=== PATIENT | male | born 1950 | race Two or more races ===

== ENCOUNTER 2017-12-07 09:16 | Inpatient (IN) | payer BC, OTHER ==
[~2017-12-07] VITALS: Ht 172.7 cm; Wt 72.1 kg
[~2017-12-07 09:16] MED LIST: AMLO10TA2 PO; ATOR20TA50 PO; GLIP-116 PO; HYDR25TA4 PO; METF-371 PO
[2017-12-07] MEDS ORDERED: ceFOXitin 2GM/100ML 100 ML IV ONE (09:29)
[2017-12-07] MEDS: amLODIPine BESYLATE 5 MG TAB PO SCH (10:00)
[2017-12-07] MEDS ORDERED: BUPIVACAINE 0.25% INJ 50ML VIAL ONE (12:48)
[2017-12-07] MEDS ORDERED: LIDOCAINE W/ EPINEPHRINE 1 % INJ 30ML ONE (12:48)
[2017-12-07] MEDS ORDERED: fentaNYL CITRATE 5 ML ONE (12:52)
[2017-12-07] MEDS ORDERED: fentaNYL CITRATE 100 MCG/2 ML VL ONE ×3 (12:52→16:52)
[2017-12-07] MEDS ORDERED: MEPERIDINE HCL (50 MG/ML) 1 ML VIAL ONE (12:52)
[2017-12-07] MEDS ORDERED: PROPOFOL 10 MG/ML 20 ML IV ONE (12:52)
[2017-12-07] MEDS ORDERED: DEXAMETHASONE SOD PHOS 10MG/1ML VIAL INJ ONE (12:52)
[2017-12-07] MEDS ORDERED: MIDAZOLAM HCL 1MG/1ML-2 ML VIAL ONE (12:52)
[2017-12-07] MEDS ORDERED: SUCCINYLCHOLINE CHLORIDE 20 MG/ML 10ML VIAL IV ONE (13:08)
[2017-12-07] MEDS ORDERED: ROCURONIUM 10MG/ML 10ML VIAL IV ONE (13:26)
[2017-12-07] MEDS ORDERED: ePHEDrine SULFATE 50 MG/ML AMP IV PRN (14:00)
[2017-12-07] MEDS ORDERED: MORPHINE SULFATE 8mg/ml INJ SDV IV ONE (14:00)
[2017-12-07] MEDS ORDERED: LABETALOL HCL 5 MG/ML 4ML SYRINGE IV PRN (14:00)
[2017-12-07] MEDS ORDERED: HYDROmorphone HCL 2 MG/ML VL IV ONE (14:00)
[2017-12-07] MEDS ORDERED: ONDANSETRON HCL 4 MG/2 ML VIAL IV ONE (14:00)
[2017-12-07] MEDS ORDERED: MORPHINE SULFATE 8mg/ml INJ SDV IV PRN (14:00)
[2017-12-07] MEDS ORDERED: KETOROLAC TROMETH 30 MG/ML 1ML VIAL IV ONE (14:00)
[2017-12-07] MEDS ORDERED: ACCU-CHEK COMFORT CURVE STRIP VI ONE (14:00)
[2017-12-07] MEDS ORDERED: MIDAZOLAM HCL 1MG/1ML-2 ML VIAL IV PRN (14:00)
[2017-12-07] MEDS ORDERED: fentaNYL CITRATE 100 MCG/2 ML VL IV ONE (14:00)
[2017-12-07] MEDS ORDERED: NEOSTIGMINE 1 MG/ML INJ (10mg/10ML VIAL) ONE (14:00)
[2017-12-07] MEDS ORDERED: GLYCOPYRROLATE 0.2 MG/ML 1ML VIAL ONE (14:00)
[2017-12-07] MEDS ORDERED: HYDROmorphone HCL 2 MG/ML VL IV PRN ×2 (14:00→14:15)
[2017-12-07] MEDS ORDERED: diphenhdrAMINE HCL 50 MG/1 ML VL IV PRN (14:15)
[2017-12-07] MEDS ORDERED: ONDANSETRON HCL 4 MG/2 ML VIAL IV PRN (14:15)
[2017-12-07] MEDS ORDERED: DEXTROSE (50%) 50ML SYRG IV PRN (14:15)
[2017-12-07] MEDS ORDERED: InsuLIN REG 1unit/0.01ml Soln (100units/ml) SC SCH ×2 (17:00→22:00)
[2017-12-07] MEDS: fentaNYL CITRATE 100 MCG/2 ML VL IV PRN ×3 (17:44→18:23)
[2017-12-07 19:50] VITALS: BP 135/74
[2017-12-07] MEDS: ACCU-CHEK COMFORT CURVE STRIP VI SCH (21:43)
[2017-12-07] MEDS: metFORMIN HYDROCHLORIDE 850 MG TAB PO SCH (21:44)
[2017-12-07] MEDS: glipiZIDE 5 MG TAB PO SCH (21:44)
[2017-12-07] MEDS: CEFOXITIN SODIUM 1 GM in D5W 5% 50 ML IV SCH (21:45)
[2017-12-07] MEDS: SOD CHL 0.45% 1,000 ML IV SCH (21:45)
[2017-12-07] MEDS: ACETAMINOPHEN/CODEINE#3 (300/30mg) TAB PO PRN (21:54)
[2017-12-07 22:00] VITALS: BP 135/74
[2017-12-08] MEDS: ACETAMINOPHEN/CODEINE#3 (300/30mg) TAB PO PRN ×2 (02:21→07:03)
[2017-12-08] MEDS: SOD CHL 0.45% 1,000 ML IV SCH (03:00)
[2017-12-08 05:00] VITALS: BP 132/74
[2017-12-08 05:54] LABS: BUN/Creatinine Ratio 15.9; Calcium 7.9 mg/dL (8.5-10.1); Potassium 3.6 mmol/L (3.5-5.1)
[2017-12-08] MEDS: CEFOXITIN SODIUM 1 GM in D5W 5% 50 ML IV SCH (07:02)
[2017-12-08] MEDS: ACCU-CHEK COMFORT CURVE STRIP VI SCH (07:02)
[2017-12-08] MEDS: metFORMIN HYDROCHLORIDE 850 MG TAB PO SCH (07:03)
[2017-12-08] MEDS ORDERED: HCTZ 25 MG TAB PO SCH (10:00)
[2017-12-08] MEDS ORDERED: ATORVASTATIN 20 MG TAB PO SCH (10:00)
[2017-12-08] MEDS: amLODIPine BESYLATE 5 MG TAB PO SCH (10:23)
[2017-12-08] MEDS: glipiZIDE 5 MG TAB PO SCH (10:23)
[2017-12-08 10:34] VITALS: BP 122/69
== END 2017-12-08 12:10 | disposition home or self-care (01) | DRG 708 ==
LOC: SUR 09:16 → WEST WING 09:17
PROVIDERS: ADMIT Urology; ATTEND Family Medicine
PROC: 0VT04ZZ Resection of Prostate, Percutaneous Endoscopic Approach (ICD-10-PCS; principal; 2017-12-08)
PROC: 07TC4ZZ Resection of Pelvis Lymphatic, Percutaneous Endoscopic Approach (ICD-10-PCS; 2017-12-08)
PROC: 8E0W4CZ Robotic Assisted Procedure of Trunk Region, Percutaneous Endoscopic Approach (ICD-10-PCS; 2017-12-08)
DX: C61 Malignant neoplasm of prostate (principal); I10 Essential (primary) hypertension; E78.5 Hyperlipidemia, unspecified; E11.9 Type 2 diabetes mellitus without complications
CPT/HCPCS: 36415; 80048; 82962; 86850; 86900; 86901; J0330; J0694; J1100; J1815; J1885; J2250; J2704; J3490; J7060

== ENCOUNTER 2020-03-28 14:22 | Inpatient (IN) | payer OTHER ==
[~2020-03-28] VITALS: Ht 172.7 cm; Wt 68.9 kg
[~2020-03-28 14:22] MED LIST changes: +AMLO10TA13 PO; -AMLO10TA2 PO; -GLIP-116 PO; +GLIP10TA9 PO
[2020-03-28] MEDS ORDERED: SODIUM CHLORIDE 0.9% 500 ML IV ONE (15:30)
[2020-03-28] MEDS ORDERED: SODIUM CHLORIDE 0.9% 1,000 ML IV ONE (15:30)
[2020-03-28 15:56] LABS: Hematocrit 37.6 % (41.0-53.0); Hemoglobin 12.3 g/dL (13.5-17.5); Mean Corpuscular Hemoglobin 28.7 pg (28.0-32.0); Mean Corpuscular Hgb Conc. 32.7 g/dL (32.0-36.0); Mean Corpuscular Volume 87.9 fL (80.0-100.0); Platelet Count (auto) 232 10^3/uL (140-450); Red Blood Cells 4.28 10^6/uL (4.5-5.90); Red Cell Distribution Width 13.5 % (11.8-14.3); White Blood Cell 24.5 10^3/uL (4.4-10.8)
[2020-03-28 16:01] LABS: Basophils % (manual) 0 (0.0-2.0); Blast Cells 0; Eosinophils % (manual) 0 (0-7); Monocytes % (manual) 0 (0-12); Myelocytes % 0; Promyelocytes % 0; Reactive Lymphocytes 0
[2020-03-28 16:17] LABS: Anion Gap 13 (5-15); Blood Urea Nitrogen 27 mg/dL (7-18); Calcium 9.1 mg/dL (8.5-10.1); Carbon Dioxide 21 mmol/L (21-32); Chloride 104 mmol/L (98-107); Glucose 263 mg/dL (74-106); Magnesium 1.7 mg/dL (1.6-2.6); Potassium 3.2 mmol/L (3.5-5.1); Sodium 138 mmol/L (136-145)
[2020-03-28 16:24] LABS: Alanine Aminotransferase 28 U/L (16-61); Alkaline Phosphatase 100 U/L (45-117); Aspartate Aminotransferase 45 U/L (15-37); BUN/Creatinine Ratio 12.4; GFR African American 39 mL/min; GFR Non-African American 32 mL/min; Total Protein 7.8 g/dL (6.4-8.2)
[2020-03-28 17:44] LABS: Band Neutrophils % (manual) 10; Lymphocytes % (manual) 2 (10.0-50.0); Metamyelocytes % 3
[2020-03-28] MEDS ORDERED: cefTRIAXone 1GM/50ML D5W 50 ML IV ONE (18:30)
[2020-03-28 20:45] LABS: Urine Bacteria FEW /hpf (None Seen); Urine Blood 1+ /uL (Negative); Urine Hyaline Cast MANY /lpf (0 - 2); Urine Mucus FEW (None Seen); Urine Specific Gravity 1.017 (1.001-1.035); Urine WBC 4 /hpf (0 - 3)
[2020-03-29] VITALS (7 sets, daily range): BP systolic 103–129; BP diastolic 59–69
[2020-03-29] MEDS ORDERED: DOCUSATE SOD 100 MG CAP PO PRN (01:45)
[2020-03-29] MEDS ORDERED: SODIUM CHLORIDE 0.9% 1,000 ML IV SCH (01:45)
[2020-03-29] MEDS ORDERED: HYDROcodone-ACET 5/325MG TAB PO PRN (01:45)
[2020-03-29] MEDS ORDERED: ONDANSETRON HCL 4 MG/2 ML VIAL IV PRN (01:45)
[2020-03-29] MEDS ORDERED: MORPHINE SULF INJ 2 MG/ML SYRINGE 1ML IV PRN (01:45)
[2020-03-29] MEDS ORDERED: DEXTROSE (50%) 50ML SYRG IV PRN (01:45)
[2020-03-29] MEDS ORDERED: ACETAMINOPHEN 325 MG TAB PO PRN (01:45)
[2020-03-29] MEDS: InsuLIN REG 1unit/0.01ml Soln (100units/ml) SC SCH ×6 (03:56→23:40)
[2020-03-29] MEDS: ACCU-CHEK COMFORT CURVE STRIP VI SCH ×6 (03:57→23:39)
[2020-03-29 06:41] LABS: Basophils # (auto) 0 10 ^3/uL (0-0.2); Basophils % (auto) 0.2 % (0.0-2.0); Eosinophils # (auto) 0 10 ^3/uL (0-0.8); Eosinophils % (auto) 0.2 % (0.0-7.0); Hematocrit 31.5 % (41.0-53.0); Hemoglobin 11.1 g/dL (13.5-17.5); Lymphocytes # (auto) 1.1 10 ^3/uL (0.4-5.4); Lymphocytes % (auto) 4.6 % (10.0-50.0); Mean Corpuscular Hemoglobin 30.6 pg (28.0-32.0); Mean Corpuscular Hgb Conc. 35.3 g/dL (32.0-36.0); Mean Corpuscular Volume 86.5 fL (80.0-100.0); Monocytes # (auto) 0.8 10 ^3/uL (0-1.3); Monocytes % (auto) 3.4 % (0.0-12.0); Neutrophils # (auto) 22.3 10 ^3/uL (1.6-8.6); Neutrophils % (auto) 91.6 % (37.0-80.0); Platelet Count (auto) 195 10^3/uL (140-450); Red Blood Cells 3.64 10^6/uL (4.5-5.90); Red Cell Distribution Width 13.7 % (11.8-14.3); White Blood Cell 24.3 10^3/uL (4.4-10.8)
[2020-03-29 07:13] LABS: Calcium 8.2 mg/dL (8.5-10.1); Potassium 3.2 mmol/L (3.5-5.1)
[2020-03-29] MEDS: ATORVASTATIN 20 MG TAB PO SCH (09:56)
[2020-03-29] MEDS ORDERED: cefTRIAXone 1GM/50ML D5W 50 ML IV SCH (10:00)
[2020-03-29] MEDS ORDERED: amLODIPine BESYLATE 5 MG TAB PO SCH (10:00)
[2020-03-29] MEDS ORDERED: HCTZ 25 MG TAB PO SCH (10:00)
[2020-03-29] MEDS ORDERED: POTASSIUM CHL 20 Meq TABLET PO ONE (14:00)
[2020-03-29] MEDS: SODIUM CHLORIDE 0.9% 1,000 ML IV SCH (16:15)
[2020-03-30] MEDS: ACCU-CHEK COMFORT CURVE STRIP VI SCH ×4 (02:50→12:00)
[2020-03-30] MEDS: SODIUM CHLORIDE 0.9% 1,000 ML IV SCH (02:53)
[2020-03-30] MEDS: InsuLIN REG 1unit/0.01ml Soln (100units/ml) SC SCH ×3 (03:44→12:00)
[2020-03-30 05:00] VITALS: BP 111/68
[2020-03-30 06:05] LABS: Basophils # (auto) 0 10 ^3/uL (0-0.2); Basophils % (auto) 0.2 % (0.0-2.0); Eosinophils # (auto) 0 10 ^3/uL (0-0.8); Eosinophils % (auto) 0.1 % (0.0-7.0); Hematocrit 36.2 % (41.0-53.0); Hemoglobin 12.4 g/dL (13.5-17.5); Lymphocytes # (auto) 1.4 10 ^3/uL (0.4-5.4); Lymphocytes % (auto) 7.8 % (10.0-50.0); Mean Corpuscular Hemoglobin 29.8 pg (28.0-32.0); Mean Corpuscular Hgb Conc. 34.4 g/dL (32.0-36.0); Mean Corpuscular Volume 86.7 fL (80.0-100.0); Monocytes # (auto) 0.7 10 ^3/uL (0-1.3); Monocytes % (auto) 4.2 % (0.0-12.0); Neutrophils # (auto) 15.4 10 ^3/uL (1.6-8.6); Neutrophils % (auto) 87.7 % (37.0-80.0); Platelet Count (auto) 178 10^3/uL (140-450); Red Blood Cells 4.18 10^6/uL (4.5-5.90); Red Cell Distribution Width 13.7 % (11.8-14.3); White Blood Cell 17.6 10^3/uL (4.4-10.8)
[2020-03-30 06:22] LABS: INR 1.07 (0.9-1.15); Partial Thromboplastin Time 27.6 sec (23.0-31.2)
[2020-03-30 06:39] LABS: Albumin 2.7 g/dL (3.4-5.0); BUN/Creatinine Ratio 18.5; Bilirubin, Total 0.7 mg/dL (0.2-1.0); Calcium 8.8 mg/dL (8.5-10.1); Magnesium 2.3 mg/dL (1.6-2.6); Total Protein 7.6 g/dL (6.4-8.2)
[2020-03-30 06:43] LABS: Potassium 2.9 mmol/L (3.5-5.1)
[2020-03-30 08:00] VITALS: BP 123/73
[2020-03-30 09:00] VITALS: BP 123/73
[2020-03-30] MEDS: ATORVASTATIN 20 MG TAB PO SCH (10:00)
[2020-03-30] MEDS ORDERED: ERTAPENEM SOD INJ 1 GM in SODIUM CHL 0.9% 50 ML IV SCH ×4 (10:00)
[2020-03-30] MEDS ORDERED: D5W/SOD CHL 0.45%/KCL 20MEQ 1,000 ML IV SCH (10:15)
[2020-03-30] MEDS ORDERED: POTASSIUM CHL 20MEQ/100ML 100 ML IV ONE (10:45)
[2020-03-30 13:00] VITALS: BP 118/73
[2020-03-30 14:30] VITALS: BP 118/73
[2020-03-30 17:00] VITALS: BP 127/73
== END 2020-03-30 17:24 | disposition short-term general hospital (02) | DRG 872 ==
LOC: ER 14:22 → TELE-WESTW 14:23
PROVIDERS: ADMIT Hospitalist; ATTEND Internal Medicine Geriatric Medicine
DX: A41.9 Sepsis, unspecified organism (principal); N17.9 Acute kidney failure, unspecified; N39.0 Urinary tract infection, site not specified; E44.0 Moderate protein-calorie malnutrition; K81.0 Acute cholecystitis; R31.0 Gross hematuria; E11.65 Type 2 diabetes mellitus with hyperglycemia; K57.30 Diverticulosis of large intestine without perforation or abscess without bleeding; I10 Essential (primary) hypertension; E87.6 Hypokalemia; R55 Syncope and collapse; Z20.828 Contact with and (suspected) exposure to other viral communicable diseases; E11.21 Type 2 diabetes mellitus with diabetic nephropathy; E78.5 Hyperlipidemia, unspecified; C61 Malignant neoplasm of prostate; Z90.79 Acquired absence of other genital organ(s); Z85.46 Personal history of malignant neoplasm of prostate; Z83.3 Family history of diabetes mellitus; Z79.84 Long term (current) use of oral hypoglycemic drugs
CPT/HCPCS: 36415; 70450; 71046; 74176; 80048; 80053; 80061; 81001; 82962; 83036; 83615; 83690; 83735; 84484; 85007; 85025; 85027; 85610; 85730; 87040; 87077; 87086; 87186; 87426; 93005; 96361; 96365; G0378; J0696; J1335; J1815; J3480